=== PATIENT | female | born 1975 | race Caucasian/White ===

== ENCOUNTER 2025-02-18 01:02 | Day surgery (SDC) | payer BC, SELFPAY ==
[2025-02-11 15:52] VITALS: BMI 27.0
--- OUTSIDE RECORDS SUMMARY | 2025-02-18 01:05 | XMS_ITS | Clinical Summary ---
Author Organization [facility] Address [address] [place] [address] Care Team Providers Care Fabricator Assembler Metal Products Name Role Phone Myrtle Castellanos MD Primary Care Provider Nicholson, Tracy Goldman MD Unavailable [phone] Allergies No known active allergies Medications fluticasone propionate (FLONASE) 50 mcg/actuation nasal spray daily. Active multivitamin tabletIndication s:Vitamin Deficiency Prevention daily. Active SUMAtriptan (IMITREX) 50 mg tabletIndication s:Migraine 8 Active cholecalciferol (VITAMIN D-3) 1,000 unit tablet daily. Active vitamin B complex capsule Take 1 capsule by mouth daily Active MAGNESIUM ORAL Take by mouth 2 (two) times a day Active loratadine (CLARITIN) 10 mg tablet Take 10 mg by mouth daily Active ibuprofen (ADVIL,MOTRIN) 600 mg tablet Take 1 tablet (600 mg total) by mouth every 6 (six) hours as needed for pain (pain) Note that the over the counter pills are 200mg each. Take 3 tablets of the 200mg to equal 600mg. 0 Active Additional Information Patient not taking.Reported on 12/18/2024 fexofenadine (JOSE LUIS) 180 mg tablet Take 1 tablet (180 mg total) by mouth daily as needed Active omega-3 fatty acids 100 mg tablet,chewable Take 2 capsules by mouth daily Active aspirin 325 mg tablet Take 1 tablet (325 mg total) by mouth daily 3 Active escitalopram (LEXAPRO) 10 mg tabletIndication s:Anxiety disorder, unspecified type Take 1 tablet (10 mg total) by mouth daily 90 tablet 3 5 07/12/19 26 Active Active Problems Problem Noted Date Diagnosed Date Inconclusive mammogram due to dense breasts 11/23 Dense breast tissue on mammogram 12/01/2021 Encounter for screening mammogram for breast can cer 12/01/2021 Family history of breast cancer in first degree relative 04/03/2018 Increased risk of breast cancer 06/02/2015 Chronic migraine without aur a without status migrainosus, not intractable 05/28/2015 Allergic rhinitis 08/12/2008 Encounters Date Type Department Care Team Description 12/18/2024 11:20 AM CDT Office Visit [facility] Medicine Physicians [facility] Oncology [address] [place] [address] [address] [place] [phone] Tracy Cota MD Family history of breast cancer in first degree relative (Primary Dx); Breast cancer screening by mammogram; Increased risk of breast cancer; Heterogeneously dense tissue of both breasts on mammography; Inconclusive mammogram due to dense breasts 12/18/2024 10:24 AM CDT - 12/18/2024 11:59 PM CDT Hospital Encounter [facility] [address] [place] [address] Breast cancer screening by mammogram; Encounter for screening mammogram for breast cancer Discharge Disposition: Discharge to home or self care 12/18/2024 Results Follow-Up [facility] Medicine Physicians [facility] [address] [place] [address] [address] [place] [phone] Tracy Cota MD Screening Mammogram Bilateral [place] from Last 3 Months Immunizations Immunization Administration Dates Next Due Moderna SARS-CoV-2 Monovalent Vaccination (12+ Y RS) 08/13/2020,07/16/2020 Moderna Sars-cov-2 Monovalen t Booster Vaccination .25 Ml dose (12+ YRS) 04/27/2021 Surgical History Surgery Date Site/Laterality Comments CERVICAL BIOPSY W/ LOOP ELECTRODE EXCISION WISDOM TOOTH EXTRACTION Medical History Medical History Date Comments Migraine Motion sickness Depression Family History Medical History Relation Name Comments Breast cancer Maternal Grandmother Breast cancer Mother contralateral at 69; no germline mutations Relation Name Status Comments Maternal Grandmother Mother Social History Tobacco Use Types Packs/Day Years Used Date Smoking Tobacco: Never Smokeless Tobacco: Never Tobacco Cessation:Counseling Given: Not Answered Alcohol Use Standard Drinks/Week Comments Yes 0 (1 standard drink = 0.6 oz pur e alcohol) Rarely AUDIT-C Answer Date Recorded Q1: How often do you have a drink containing alcohol? Never 02/21/2024 Q2: How many drinks containi ng alcohol do you have on a typical day when you are drinking? Patient does not drink Q3: How often do you have si x or more drinks on one occasion? 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 Gender Identity Not on file Sexual Orientation Not on file Obstetrics History Para Term AB IAB SAB Ectopic Multiple Livin g Live Births 4 4 4 4 4 Date Outcome GA Total Labor Labor//3rd Weight Sex Type Anes PTL Swetha A1 A5 Name Clin 2006 Term F Vaginal Livin g Lauren 2007 Term M Vaginal Livin g Cj 2010 Term F Vaginal Livin g Hewitt 2013 Term M Vaginal Livin g Cane Last Filed Vital Signs Vital Sign Reading Time Taken Comments Blood Pressure 93/65 12/18/2024 11:26 AM CDT Pulse 74 12/18/2024 11:26 AM CDT Temperature 36.6 C (97.8 F) 12/18/2024 11:26 AM CDT Respiratory Rate 12 12/18/2024 11:2 6 AM CDT Oxygen Saturation 98% 12/18/2024 11: 26 AM CDT Inhaled Oxygen Concentration - - Weight 80.2 kg (176 lb 12.8 oz) 025 11:26 AM CDT Height 170.2 cm (5' 7) 12/18/2024 10:2 6 AM CDT Body Mass Index 27.69 12/18/2024 10:26 AM CDT Plan of Treatment Health Maintenance Due Date Last Done Comments Cervical Cancer Screening 1975 Colon Cancer Screening-Colonoscopy 1975 Depression Screening 1975 Hepatitis C Screening 1976 Hepatitis B Screening 1994 Covid-19 Vaccine ( season) 2024 04/27/2021, 08/13/2020, 07/16/2020 Influenza Vaccine (#1) 2024 03/20/2024 Regular Well Visit/Exam 18-64 02/20/2025 02/21/2024 Breast Cancer Screening-Mammogram 12/18/2025 12/18/2024, 12/13/2023, 12/07/2022, Additional history exists DTaP/Tdap/Td Vaccine (2 - Td or Tdap) 11/04/2034 11/04/2024 Pneumococcal vaccine <65 Aged Out No longer eligible based on patient's age to complete this topic Procedures Procedure Name Priority Date/Time Associated Diagnosis Comments SCREENING MAMMOGRAM BILATERAL W ORION Schedule Routine, Read Routine (OP Routine) 12/18/2024 10:34 AM CDT Breast cancer screening by mammogram Encounter for screening mammogram for breast cancer from Last 3 Months Results * Screening Mammogram Bilateral W [place] (12/18/2024 10:34 AM CDT) Anatomical Region Laterality Modality Breast Bilateral Mammography Impressions 12/18/2024 10:54 AM CDT Bilateral No evidence of malignancy in either breast. OVERALL BI-RADS FINAL ASSESSMENT: 1 - Negative RECOMMENDATION: Recommend bilateral annual screening mammography. If supplemental screening is desired for heterogeneously dense breast tissue, consider breast MRI every 1-2 years. If breast MRI cannot be performed, contrast-enhanced mammography is an alternative. Narrative 12/18/2024 10:54 AM CDT EXAMINATION: Screening Mammogram Bilateral W [place]: 12/18/2024 COMPARISON: Relevant prior studies available at the time of interpretation were reviewed, including the most recent mammogram on: 12/13/2023. TECHNIQUE: Mammography was performed with 2D and 3D digital breast tomosynthesis (DBT) images. CAD was utilized. BREAST PARENCHYMAL COMPOSITION: The breasts are heterogeneously dense, which may obscure small masses. FINDINGS: Bilateral There is no suspicious mass, calcification, or architectural distortion in either breast.There is a biopsy marker clip in the right breast. us Tracy Cota MD IMG MAMMO PROCEDURES Final Result from Last 3 Months Insurance [employer] [place] [employer] OOS [employer]OS [employer] OOS Advance Directives For more information, please contact: [phone] * Full Code (Latest Code Status on File) Date Activated Date Inactivated Comments 02/21/2020 2:04 PM 02/21/2020 2:30 PM Care Teams Fabricator Assembler Metal Products Relationship Specialty Start Date End Date Myrtle Castellanos MD [address] [place] [address] PCP - General 04/21/21 Tracy Cota MD [address] [place] [address] Breast Surgery 12/07/22
--- OUTSIDE RECORDS SUMMARY | 2025-02-18 01:05 | XMS_ITS | Encounter Summary ---
Author Organization [facility] Address [address] [place] [address] Care Team Providers Care Cane Flume Watcher Name Role Phone Sergei Petersen MD Primary Care Provider [phone] Myrtle Castellanos MD Primary Care Provider [phone] CiprianoTracy ng MD Unavailable [phone] Encounter Details Date Type Department Care Team (Late st Contact Info) Description 04/20/2020 Telephone [facility] - Imaging [address] [place] [address] Transcribed Order, Provider Social History Tobacco Use Types Packs/Day Years Used Date Smoking Tobacco: Never Smokeless Tobacco: Never Alcohol Use Standard Drinks/Week Comments Yes 0 (1 standard drink = 0.6 oz pur e alcohol) Rarely Comments No Sex and Gender Information Value Date Recorded Sex Assigned at Not on file 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
--- OUTSIDE RECORDS SUMMARY | 2025-02-18 01:05 | XMS_ITS | Clinical Summary ---
Author Organization [facility] Address [facility] [place] [address] Care Team Providers Care Paint Brush Maker Name Role Phone Myrtle Castellanos MD Primary Care Provider [phone] Allergies No known active allergies Medications aspirin 325 MG tablet Take 1 tablet (325 mg total) by mouth daily. 30 tablet 10/06/2022 Active Immunizations Immunization Administration Dates Next Due MODERNA COVID-19 (12+) MRNA, LNP-S, PF, 100 MCG/ 0.5 ML DOSE 08/13/2020,07/16/2020 Social History Tobacco Use Types Packs/Day Years Used Date Smoking Tobacco: Never Smokeless Tobacco: Never Tobacco Cessation:Counseling Given: Not Answered Alcohol Use Standard Drinks/Week Comments Never 0 (1 standard drink = 0.6 oz pur e alcohol) Comments No Sex and Gender Information Value Date Recorded Sex Assigned at Not on file Legal Sex Female 2:01 PM CDT Gender Identity Not on file Sexual Orientation Not on file Last Filed Vital Signs Vital Sign Reading Time Taken Comments Blood Pressure 125/75 10/07/2022 1:41 PM CDT Pulse 72 10/07/2022 1:41 PM CDT Temperature 36.6 C (97.9 F) 10/07/2022 1:41 PM CDT Respiratory Rate 18 10/07/2022 1:41 PM CDT Oxygen Saturation 100% 10/07/2022 1:41 PM CDT Inhaled Oxygen Concentration - - Weight 79.8 kg (176 lb) 10/07/2022 1:41 PM CDT Height 170.2 cm (5' 7) 10/07/2022 1:41 PM CDT Body Mass Index 27.57 10/07/2022 1:41 PM CDT Plan of Treatment Health Maintenance Due Date Last Done Comments Colorectal Cancer Screening Colonoscopy (10 Years) 1976 Annual Physical 1979 Hepatitis C 1994 Hepatitis B Vaccines (1 of 3 - 19+ 3-dose series) 1995 Cervical Cancer Screening Pap with HPV Testing (Age 30 to 64) Every 5 Years 2006 Mammogram Screening 2016 DTaP, Tdap and Td Vaccines (4 - Td or Tdap) 01/22/2024 01/21/2014, 03/02/2011, 12/16/2008 COVID-19 Vaccine ( - 2024- season) 2024 04/27/2021, 08/13/2020, 07/16/2020 Cervical Cancer Screening Pap Smear (Age 30 to 64) Every 3 Years 01/10/2025 01/10/2022 Cervical Cancer Screening with HPV 01/10/2025 Influenza Adult (#1) 2025 03/01/2022, 02/06/2020, 01/30/2019, Additional history exists Hepatitis A Vaccines Aged Out No long er eligible based on patient's age to complete this topic Meningococcal B Vaccine Aged Out No l onger eligible based on patient's age to complete this topic Meningococcal Vaccine Aged Out No concetta nora eligible based on patient's age to complete this topic Pneumococcal Vaccine: Pediatrics (0 to 5 Years) and At-Risk Patients (6 to 49 Years) Aged Out No longer eligible based on patient's age to complete this topic RSV Immunizations Under 20 Months Aged Out No longer eligible based on patient's age to complete this topic Care Teams Paint Brush Maker Relationship Specialty Start Date End Date Myrtle Castellanos MD [address] [place] [address] PCP - General FAMILY PRACTICE 10/05/22
--- OUTSIDE RECORDS SUMMARY | 2025-02-18 01:05 | XMS_ITS | Encounter Summary ---
Author Organization [facility] Address [address] [place] [address] Phone Care Team Providers Care Torch Cutter Name Role Phone Myrtle Castellanos MD Primary Care Provider Tracy Cota MD Unavailable [phone] Encounter Details Date Type Department Care Team (Late st Contact Info) Description 12/18/2024 Results Follow-Up [facility] Medicine Physicians 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
[2025-02-18 13:38] VITALS: BP 120/71; PULSE 75; RESP 20; TEMP 36.6; O2SAT 100
[2025-02-18] MEDS: LACTATED RINGERS 1,000 ML 150 ML IV CONT (13:58)
--- NOTE | 2025-02-18 14:27 | PM.HPGS ---
History of Present Illness History of Present Illness Consent: Risks, benefits, and alternatives have been discussed and questions answered. Patient agrees to proceed with procedure. Chief complaint: Encounter for screening for malignant neoplasm of Narrative: Whit Feliciano is a 49 year old female here for first screening colonoscopy Review of Systems Review of Systems: All systems reviewed & are unremarkable except as noted in HPI and below PMFSH Past Medical History Medical History (Updated 02/18/25 @ 14:27 by Ray Velazquez MD) Colon cancer screening Social History Social History Smoking status: Never smoker Alcohol intake: current Substance use: never Living arrangements: with family Spiritual care concerns: No Meds Home Medications and Allergies Home Medications ?Medication ?Instructions ?Recorded ?Confirmed ?Type cholecalciferol (vitamin D3) 25 25 mcg PO DAILY 02/11/25 02/18/25 History mcg (1,000 unit) capsule (Vitamin D3) escitalopram oxalate 10 mg tablet 10 mg PO DAILY 02/11/25 02/18/25 History fexofenadine 180 mg tablet 180 mg PO DAILY 02/11/25 02/18/25 History (Jia Allergy) [id number] 1 tablet PO DAILY 02/11/25 02/18/25 History fumarate 18 mg-folic acid 400 mcg tablet (One Daily Women's) Allergies Allergy/AdvReac Type Severity Reaction Status Date / Time No Known Allergies Allergy Verified 02/18/25 13:37 Vital Signs Vital Signs - 24 hr 02/18/25 13:38 Temperature 97.8 F Pulse Rate 75 Respiratory Rate 20 Blood Pressure 120/71 Pulse Oximetry 100 Oxygen Delivery Room Air Exam Const: General: comfortable and no acute distress HENMT: Face/Nose/Sinus: Normal nares present Eyes: General: appearance normal, both eyes and all related structures Neck: Neck: no JVD Resp: Auscultation: clear to auscultation bilaterally Cardio: Rate: regular rate Rhythm: regular rhythm GI: Inspection: non-distended GI Palp: Yes Soft to palpation Skin: General skin exam: normal color Neuro: General: gait normal Speech: normal speech Extrem: General: normal to inspection Psych: Mental Status: mental status grossly normal Assessment and Plan Assessment and plan (1) Colon cancer screening: Code(s): Z12.11 - Encounter for screening for malignant neoplasm of colon Status: Acute Assessment and Plan: colonoscopy
[2025-02-18 14:32] LABS: BEDSIDEPREGUCG Negative (Negative)
--- NOTE | 2025-02-18 14:34 | WPDANESEPPF ---
Anes - Initial Pre Proc Eval Procedure: Operation Date: 02/18/25 14:30 Proposed Procedures p Screening Colonoscopy - Ray Velazquez MD Date/Time: 02/18/25 14:34 Surgeon: Ray Velazquez MD Pre Op Diagnosis: Encounter for screening for malignant neoplasm of Patient Data Age: 49 Gender: F Height: 1.7 m Weight: 77.8 kg Last Vital Signs Temp 97.8 F 02/18/25 13:38 Pulse 75 02/18/25 13:38 Resp 20 02/18/25 13:38 BP 120/71 02/18/25 13:38 Pulse Ox 100 02/18/25 13:38 O2 Del Method Room Air 02/18/25 13:38 Allergies Allergy/AdvReac Type Severity Reaction Status Date / Time No Known Allergies Allergy Verified 02/18/25 13:37 Home Medications ?Medication ?Instructions ?Recorded ?Confirmed ?Type cholecalciferol (vitamin D3) 25 25 mcg PO DAILY 02/11/25 02/18/25 History mcg (1,000 unit) capsule (Vitamin D3) escitalopram oxalate 10 mg tablet 10 mg PO DAILY 02/11/25 02/18/25 History fexofenadine 180 mg tablet 180 mg PO DAILY 02/11/25 02/18/25 History (Jia Allergy) [id number] 1 tablet PO DAILY 02/11/25 02/18/25 History fumarate 18 mg-folic acid 400 mcg tablet (One Daily Women's) Laboratory Tests 02/18/25 14:31 POC Urine HCG, Qual Negative (Negative) Patient hx anesthesia problems: none Family hx anesthesia problems: none Results Review: All pre-operative results and documents have been reviewed as part of the pre-operative evaluation. [facility] Past Medical History Medical History Colon cancer screening Social History Social History Smoking status: Never smoker Alcohol intake: current Substance use: never Living arrangements: with family Spiritual care concerns: No Anes - Eval Final PreProcedure Day of Procedure 02/18/25 14:34 Patient weight: normal Lungs: normal air movement Airway: Mallampati scale class II Neurological: alert and oriented Last oral intake: >/= 8 hours ASA classification: II Emergent: no Anesthetic plan: proceed Anesthesia type and monitoring: general GIVS and standard monitoring Results Review: All pre-operative results and documents have been reviewed as part of the pre-operative evaluation. Hx of migranes, remote hx of PONV w ablation. Overall excellent functional status, no cp or sob. Informed Consent: The patient's anesthetic plan and its attendant risks and benefits were discussed with the patient/family/POA. Questions were solicited and answers provided to the satisfaction of the patient/family/POA.
--- NOTE | 2025-02-18 14:46 | S_PTH ---
PATIENT: Whit Feliciano LOC: [facility] Wild#:[id number] AGE/SX: 49/F ROOM: RE02/18/[address]: Ray Velazquez MD : 1975 BED: DIS: 02/18/2025 SPEC #: [id number] RECD: 02/19/25 07:08 STATUS: ALINE RERudy #: [id number] RIGOBERTO: 02/18/25 14:[address]: Ray Velazquez DEPT: [facility] Surgical RECD BY: Noris Bauer Tissues: A - Colon Polypectomy Procedures: Hematoxylin and Eosin Stain Gross and Microscopic Level 4
[2025-02-18 14:49] VITALS: BP 83/48; PULSE 57; RESP 22; O2SAT 98
[2025-02-18 14:59] VITALS: BP 90/60; PULSE 55; RESP 19; O2SAT 100
[2025-02-18 15:09] VITALS: BP 102/69; PULSE 67; RESP 21; O2SAT 100
== END 2025-02-18 15:21 | disposition home or self-care (01) ==
PROVIDERS: Anesthesiology; Visit Provider Internal Medicine Gastroenterology
PROC: 0DJD8ZZ Inspection of Lower Intestinal Tract, Via Natural or Artificial Opening Endoscopic (ICD-10-PCS; CPT 45378; principal; 2025-02-18 14:30)
DX: Z12.11 Encounter for screening for malignant neoplasm of colon (principal); D12.3 Benign neoplasm of transverse colon; K64.8 Other hemorrhoids
CPT/HCPCS: 45380; 88305; J2003; J2704; J7120